=== PATIENT | male | born 1975 | race Caucasian/White ===

== ENCOUNTER 2020-04-11 12:00 | Outpatient (CLI) | payer BC, SELFPAY | END 2020-04-11 12:01 | disposition home or self-care (01) | LOC: SLEEP 04-12 10:47 | PROVIDERS: PCP Nurse Practitioner Family; Visit Provider Nurse Practitioner Family | DX: G47.10 Hypersomnia, unspecified (principal) | CPT/HCPCS: G0399 ==

== ENCOUNTER 2020-04-19 11:03 | Outpatient (CLI) | payer BC, SELFPAY ==
--- NOTE | 2020-04-19 11:48 | ECG_ITS ---
[facility] Test Date: 2020-04-19 Pat Name: Sami Regalado Department: Room: Gender: Male Work Station Support Specialist: Cindy Sparks : 1975 Requested By: Candice Robert Order Number: [id number] Raymundo MD: Robert Lacey M.D. Interpretive Statements NAME OF STUDY: TREADMILL STRESS TEST INDICATION: Chest Pain, PROCEDURE: At the baseline, the patient's blood pressure was 131/95 with a heart rate of 106. The baseline electrocardiogram showed sinus tachycardia with some nonspecific T wave changes. The patient exercised for 3 minutes and 43 seconds on a standard [employer] protocol. Patient attained a maximum heart rate of 172 beats per minute(96% of the maximum predicted heart rate) with a blood pressure at the peak exercise of 203/88 mm Hg. The EKG at the peak exercise revealed no significant changes. Patient did not have any chest pain or any significant cardiac arrhythmias with the exercise During the recovery phase, there were no new changes. Blood pressure at the end of the recovery phase was 155/73 mm Hg with a heart rate of 112 per minute. CONCLUSION: 1. Normal EKG response to treadmill exercise 2. No exercise-induced chest pain or cardiac arrhythmia 3. Impaired exercise tolerance, attained a maximum of 7.0 METs 4. Hypertensive response to exercise Electronically Signed On 04-20-2020 20:54:34 [employer] by Robert Lacey M.D. [id number]
[2020-04-19 11:52] VITALS: BMI 41.3
[2020-04-19 12:00] VITALS: BP 173/57; PULSE 100
== END 2020-04-19 11:04 | disposition home or self-care (01) ==
LOC: CDL 11:05
PROVIDERS: PCP Nurse Practitioner Family; Visit Provider Nurse Practitioner Family
DX: R07.9 Chest pain, unspecified (principal); I10 Essential (primary) hypertension
CPT/HCPCS: 93017

== ENCOUNTER → 2021-01-06 09:51 | Outpatient (BNVA) | payer BC, SELFPAY | PROVIDERS: PCP Nurse Practitioner Family; Visit Provider Nurse Practitioner Family | DX: Z20.822 Contact with and (suspected) exposure to COVID-19 (principal) | CPT/HCPCS: 87635 ==

== ENCOUNTER 2023-05-30 07:29 | Day surgery (SDC) | payer BC, SELFPAY ==
[2023-05-30 07:46] VITALS: BP 146/73; PULSE 85; RESP 18; TEMP 36.8; O2SAT 98; BMI 44.3
--- NOTE | 2023-05-30 07:47 | P.ANESASSM_ITS ---
Pre-Anesthetic Assessment Height/Weight: Height 1.75 m Preop Diagnosis: screening Operation Date: 05/30/23 08:35 Proposed Procedures p 56926 colon, G0121 screen colon A risk Z12.11(Not Applicable) - Siddhartha Hobbs MD Was Beta Esther taken within 24 hours: N/A Was Clonidine taken within 24 hours: N/A Social No alcohol and No tobacco Exam alert, oriented x 3, clear to auscultation bilaterally and regular rate & rhythm Airway Submandibular: within normal limits Cervical ROM: within normal limits Mallampati: Class II History/ROS No significant history except as noted and No significant complaints Pulmonary None reported CV/HEM Hypertension None reported Hepatic None reported GI None reported Metabolic None reported Musc/skel None reported Neuropsych None reported Anesthetic Plan ASA status: 2 Anesthesia: MAC Medications/Allergies Home Medications Medication Instructions Recorded Confirmed Last Taken Type lisinopril 10 mg tablet 10 mg PO DAILY 01/06/21 05/28/23 05/28/23 History minocycline 50 mg capsule 50 mg PO DAILY 01/06/21 05/28/23 05/28/23 History lactobacillus combination no.4 3 3,000 mmu cells PO DAILY 05/28/23 05/28/23 05/28/23 History billion cell capsule (Probiotic) multivitamin with minerals 1 tab PO DAILY 05/28/23 05/28/23 05/28/23 History omega 6-vkw-hfs-fish oil 1,000 mg 1 cap PO DAILY 05/28/23 05/28/23 05/28/23 History (120 mg-180 mg) capsule (Fish Oil) triamcinolone acetonide 0.1 % 1 applic topical BID PRN Outbreak 05/28/23 05/28/23 Unknown History topical cream Allergies Allergy/AdvReac Type Severity Reaction Status Date / Time Penicillins Allergy Intermediate hives Verified 01/16/23 08:18 [facility] Anesthesia Social History (Updated 01/06/21 @ 08:25 by Lorelei Mittal NP) Smoking and tobacco/nicotine status: never used tobacco/nicotine Alcohol intake: never Data Anesthesia Cardiac Studies: No Data to Display
--- NOTE | 2023-05-30 07:55 | W.PM.OPSFHP ---
Same Day Surgery H&P Indication for Procedure/HPI DATE OF PROCEDURE: May 30, 2023 CHIEF COMPLAINT/INDICATIONFOR SURGICAL PROCEDURE: Need for screening colonoscopy PREOP DIAGNOSIS: screening PLANNED PROCEDURE: Operation Date: 05/30/23 08:35 Proposed Procedures p [id number] colon, G0121 screen colon A risk Z12.11(Not Applicable) - Siddhartha Hobbs MD Medications/Allergies* Home Medications Medication Instructions Recorded Confirmed Type lisinopril 10 mg tablet 10 mg PO DAILY 01/06/21 05/28/23 History minocycline 50 mg capsule 50 mg PO DAILY 01/06/21 05/28/23 History lactobacillus combination no.4 3 3,000 mmu cells PO DAILY 05/28/23 05/28/23 History billion cell capsule (Probiotic) multivitamin with minerals 1 tab PO DAILY 05/28/23 05/28/23 History omega 2-xuf-qko-fish oil 1,000 mg 1 cap PO DAILY 05/28/23 05/28/23 History (120 mg-180 mg) capsule (Fish Oil) triamcinolone acetonide 0.1 % 1 applic topical BID PRN Outbreak 05/28/23 05/28/23 History topical cream Allergies/Adverse Reactions Allergy/AdvReac Type Severity Reaction Status Date / Time Penicillins Allergy Intermediate hives Verified 01/16/23 08:18 Pertinent History/Comorbid Conditions* Social History Smoking and tobacco/nicotine status: never used tobacco/nicotine Alcohol intake: never Pertinent Exam Findings alert, oriented x 3, clear to auscultation bilaterally and regular rate & rhythm Recommendations Other Other Plans: After a complete history, physical examination and review of all available clinical data. I have offer screening colonoscopy as indicated by the current guidelines. I have discussed all the risks and benefits of the colonoscopy. Including, the risk of perforation requiring surgical intervention, rectal bleeding, incomplete colonoscopy requiring repeat procedure in 3 months, missed polyps, need for additional procedures. Patient shows understanding and wishes to proceed. Coding Level of Care Code Acute Code for Nicko Allen
[2023-05-30] MEDS: sodium chloride 0.9% 1,000 ML 30 ML IV (08:09)
[2023-05-30 08:47] VITALS: BP 109/66; PULSE 80; RESP 18; TEMP 36.1; O2SAT 96
[2023-05-30 08:50] VITALS: BP 116/68; O2SAT 95
[2023-05-30 09:01] VITALS: BP 128/76; PULSE 69; RESP 18; O2SAT 97
--- NOTE | 2023-05-30 09:15 | ANE.PACU2 ---
Inpatient post-anesthesia follow up: Airway intact: Yes Vital signs: Temperature 97.0 F Pulse Rate 69 Respiratory Rate 18 Blood Pressure 128/76 Pulse Oximetry 97 Oxygen Delivery Me thod Room Air Oxygen Flow Rate Fraction of Inspir ed Oxygen Hydration adequate: Yes Nausea and vomiting: No Pain level: 1 Mental status: Baseline
== END 2023-05-30 09:17 | disposition home or self-care (01) ==
PROVIDERS: PCP Nurse Practitioner Family; Visit Provider Surgery
PROC: 0DJD8ZZ Inspection of Lower Intestinal Tract, Via Natural or Artificial Opening Endoscopic (ICD-10-PCS; CPT 45378; principal; 2023-05-30 08:35)
DX: Z12.11 Encounter for screening for malignant neoplasm of colon (principal); D12.8 Benign neoplasm of rectum; I10 Essential (primary) hypertension
CPT/HCPCS: 45380; 45385; 76937; 88305; J2704; J7030

== ENCOUNTER 2024-07-13 09:28 | Outpatient (CLI) | payer BC, SELFPAY ==
--- NOTE | 2024-07-13 09:32 | XRR_ITS ---
PROCEDURE INFORMATION: Exam: XR Lumbosacral Spine Exam date and time: 07/13/2024 9:39 AM Age: 48 years old Clinical indication: Low back pain TECHNIQUE: Imaging protocol: Radiologic exam of the lumbosacral spine. Views: 4 or 5 views. COMPARISON: No relevant prior studies available. FINDINGS: Bones/joints: Normal. No acute fracture. Normal alignment. Mild marginal spurring. Soft tissues: Unremarkable. XR/XR lumbar spine min 4V [id number] IMPRESSION: No acute findings.
== END 2024-07-13 09:29 | disposition home or self-care (01) ==
PROVIDERS: PCP Nurse Practitioner Family; Visit Provider Nurse Practitioner Family
DX: M25.78 Osteophyte, vertebrae (principal)
CPT/HCPCS: 72110